=== PATIENT | female | born 1930 | race Caucasian/White ===

== ENCOUNTER 2017-11-19 08:50 | Inpatient (IN) | payer MEDICARE ==
--- NOTE | 2017-11-19 12:19 | RAD ---
LEFT KNEE RADIOGRAPHS FOUR VIEWS: Date: 11-19-17 Provided Clinical History: Left knee pain status post injury. FINDINGS: Post-operative change of left total knee arthroplasty are demonstrated. There is a transversely orien kelle periprostatic fracture of the distal femoral metaphyseal region. There is posterior displacement of the distal fracture fragment with respect to the proximal fracture fragment as well as fracture fr agment overriding. Alignment appears otherwise anatomic. There is no evidence for hardware loosening or migration. IMPRESSION: 1. Displaced distal femoral metaphyseal periprosthetic fracture. POS: [facility]
[2017-11-19 12:36] LABS: #Lymphocytes 0.6 thou/uL (1.20-3.40); #Monocytes 0.5 thou/uL (0.11-0.59); %Basophils 0.1 % (0.0-1.0); %Eosinophils 0.1 % (0.0-10.0); %Monocytes 5.7 % (0.0-10.0); %Neutrophils 87.1 % (42.0-75.0); Hemoglobin 12.5 g/dL (12.0-16.0); Mean Corpuscular HGB CONC 32.7 g/dL (32.0-36.0); Mean Corpuscular Hemoglobin 30.7 pg (27.0-31.0); Mean Platelet Volume 10.1 fL (7.4-10.4); Platelet Count 170 thou/uL (130-400); RBC Distribution Width 12.8 % (11.5-14.5); Red Blood Cell (RBC) Count 4.07 mill/uL (4.20-5.40); White Blood Cell (WBC) Count 9.1 thou/uL (4.8-10.8)
[2017-11-19 12:46] LABS: INR-International Normal Ratio 1.1; PTT 26.5 SEC (22.9-36.1); Prothrombin Time 14.3 SEC (12.0-14.7)
[2017-11-19] MEDS ORDERED: HYDROcodone/Acetaminophen 10/325 mg Tablet PO PRN ×2 (12:48)
[2017-11-19] MEDS ORDERED: Dextrose 50% Abboject 50 ML SYRINGE SLOW IVP PRN (12:48)
[2017-11-19] MEDS ORDERED: Dextrose 5% in Water 1,000 ML IV PRN (12:48)
[2017-11-19] MEDS ORDERED: Acetaminophen 500 MG TAB PO SCH (13:00)
[2017-11-19 13:07] LABS: ALT (SGPT) 14 U/L (8-55); AST (SGOT) 13 U/L (5-34); Albumin 3.3 g/dL (3.4-4.8); Alkaline Phosphatase 59 U/L (40-150); Anion Gap 13 mmol/L (10-20); BUN (Urea Nitrogen) 17 mg/dL (9.8-20.1); Bilirubin, Total 0.5 mg/dL (0.2-1.2); Calc. Creatinine Clearance 0 mL/min (70-130); Calcium 9.2 mg/dL (7.8-10.44); Carbon Dioxide 26 mmol/L (23-31); Chloride 97 mmol/L (98-107); Estimated GFR-MDRD 66; Globulin 3.5 g/dL (2.4-3.5); Glucose 193 mg/dL (83-110); Potassium 4.3 mmol/L (3.5-5.1); Protein, Total 6.8 g/dL (6.0-8.3); Sodium 132 mmol/L (136-145)
--- NOTE | 2017-11-19 13:10 | CON ---
DATE OF CONSULTATION: 11/19/2017 CHIEF COMPLAINT: Left leg pain. HISTORY OF PRESENT ILLNESS: Ms. Corado is an 86-year-old female who fell at home today. She sharron ded on her left side. She lost her balance. She did not lose consciousness or strike her head. She was unable to ambulate. She had immediate pain in the left femur. She has a history of total knee arthroplasty many years ago. She has had no problems recently with her legs. She has been of good h ealth over the last several years. She denies any active medical problems. PAST MEDICAL HISTORY: She denies medical problems. PAST SURGICAL HISTORY: Previous bilateral total knee arthroplasty approximately 30-40 years ago she reports. FAMILY MEDICAL HISTORY: Noncontributory. SOCIAL HISTORY: The patient denies tobacco, alcohol, or drug use. REVIEW OF SYSTEMS: Positive for left leg pain, otherwise negative. IMAGES: X-rays of the left knee demonstrate total knee arthroplasty which is well fixed to the bone. She has a periprosthetic distal femur fracture, approximately 3 cm proximal to the implant. PHYSICAL EXAMINATION: VITAL SIGNS: Stable. Patient is alert, sitting upright in no apparent distress, normotensive, 98% o n room air. GENERAL: She is talkative. HEENT: Normocephalic, atraumatic. RESPIRATORY: Breathing comfortably. ABDOMEN: Soft, nontender, and nondistended. MUSCULOSKELETAL: Left leg has a well healed surgical scar anteriorly. There is effusion and swellin g of the knee. She has pain with motion. She is neurovascularly intact in the foot and ankle. She has palpable dorsalis pedis pulse. IMPRESSION: Left periprosthetic distal femur fracture. PLAN: At this point, the patient will need operative treatment. We will admit her to the [facility] for pain control and preoperative medical optimization. She is of good health. Our plan will b e for open reduction and internal fixation of the distal femur using a plate. I will add her on for the surgical schedule tomorrow morning. She should be n.p.o. at midnight. Questions have been answe red, including with her family. She will have appropriate antibiotic prophylaxis and DVT prophylaxis .
--- NOTE | 2017-11-19 14:52 | HP ---
DATE OF ADMISSION: 11/19/2017 REQUESTING PHYSICIAN: Boom Lincoln MD ADMITTING PHYSICIAN: Berto Cole DO CONSULTING PHYSICIAN: Black Villarreal MD CHIEF COMPLAINT: Evaluation of left knee status post fall. HISTORY OF PRESENT ILLNESS: The patient is an 86-year-old female with history of Alzheimer's disease and previous history of opiate addiction who apparently tried to sit on her dog last night. The dog moved and the patient fell sideways onto her left knee. She denies head injury or loss of conscious ness. The daughter was apparently next to her when she fell and was able to catch her somewhat. She was brought to the [place] ED where she was evaluated and diagnosed with a left distal femur shahzad prosthetic fracture. Dr. Black Villarreal was consulted and agreed to take her to the OR today. The patient denies any pain currently. She is also unable to recall any events of the fall and is un sure why she was in the hospital. Details of this history were obtained from the daughter who is pre sent at bedside. CURRENT MEDICATIONS: Include Zoloft and melatonin. PAST MEDICAL HISTORY: Significant for Alzheimer's dementia, possibly osteoporosis or osteopenia, solomon rine cancer or other reproductive cancer (the patient and her daughter were unable to recall the exac t type of cancer). The patient also has a history of opiate addiction. PAST SURGICAL HISTORY: Obtained from daughter. The patient has had a hysterectomy many years ago. The patient has had bilateral knee replacements approximately 40 years ago. The patient also has a r emote history of back surgery. SOCIAL HISTORY: The patient does not drink alcohol currently. She does not smoke. She does not do drugs. She lives with her daughter in a [address] dwelling. ALLERGIES: The patient reports no known drug allergies. FAMILY HISTORY: Unclear. The patient was adopted. REVIEW OF SYSTEMS: Review of systems is negative except as mentioned in the HPI. Last meal, the pat ient reports having a peanut butter cracker several hours ago. Other than that, she has not had any food since yesterday. PHYSICAL EXAMINATION: VITAL SIGNS: BP 101/76, pulse 85, respirations 16, temperature 97.3, O2 sat 97% on room air. GENERAL APPEARANCE: The patient is an elderly adult female who does not appear to be in any acute di stress. HEENT: Her head is normocephalic and atraumatic. Eyes, pupils are round and reactive to light and a ccommodation, but unequal in size. Right equals 3 mm, left equals 2 mm. Ears, the patient's externa l auditory canals are atraumatic. There is no blood or discharge. Nose, her nares are patent and wi thout discharge. MOUTH: The patient has upper dentures. She has no other oropharyngeal abnormalities. NECK: The patient's trachea is midline. Her neck is supple and there is no tenderness. RESPIRATORY: Her lungs are clear to auscultation bilaterally with normal effort. CARDIOVASCULAR: She has a regular rate and rhythm. Normal S1 and S2. No murmurs, gallops or rubs. ABDOMEN: Her abdomen is soft, nontender and nondistended. Her bowel sounds are normal. EXTREMITIES: She is neurovascularly intact x4. She has well-healed surgical scars running verticall y along both knees. Her left knee is grossly effused, but nonerythematous. SKIN: Intact. NEUROLOGIC: The patient has a Dow coma scale of 15 today. She is alert and oriented to name and place. LABORATORY DATA: WBC 9.1, hemoglobin 12.5, hematocrit 38.2, platelets 170,000. Coags: PT is 14.3, INR 1.1, PTT 26.5. Chemistry: Sodium 132, potassium 4.3, chloride 97, bicarbonate 26, BUN 17, creat inine 0.82, estimated GFR 66, glucose 193. Other lab findings, albumin 3.3, albumin globulin ratio 0 .9. RADIOGRAPHIC FINDINGS: Knee x-ray, impression: Displaced distal femoral metaphyseal periprosthetic fracture. ASSESSMENT AND PLAN: 1. Status post ground level fall. 2. Distal left periprosthetic femur fracture, closed. 3. Acute traumatic pain. 4. History of Alzheimer's dementia. PLAN: 1. The plan will be for the patient to go to the OR today for surgical fixation of her left distal f emur. 2. Postop PT and OT consult. 3. We will initiate pain control and other supportive care measures, gastritis prophylaxis and pulmo nary toileting. This patient was seen and examined along with Dr. Berto Cole who agrees with this assessment and benitez colon
[2017-11-19 14:54] VITALS: BMI 19.8
[2017-11-19] MEDS: Sodium Chloride 0.9% 1,000 ML IV SCH ×2 (14:56→22:21)
[2017-11-19] MEDS: Acetaminophen 500 MG TAB PO SCH (22:15)
[2017-11-20] MEDS ORDERED: CEFAZOLIN/Water 2 GM/20 ML SYRINGE SLOW IVP SCH (00:01)
[2017-11-20 04:32] LABS: Anion Gap 8 mmol/L (10-20); BUN (Urea Nitrogen) 18 mg/dL (9.8-20.1); Calc. Creatinine Clearance 43 mL/min (70-130); Calcium 8.1 mg/dL (7.8-10.44); Carbon Dioxide 27 mmol/L (23-31); Chloride 105 mmol/L (98-107); Estimated GFR-MDRD 69; Glucose 91 mg/dL (83-110); Potassium 3.9 mmol/L (3.5-5.1); Sodium 136 mmol/L (136-145)
[2017-11-20 04:48] LABS: Eosinophils 1 % (0-10); Hemoglobin 9.8 g/dL (12.0-16.0); Lymphocytes 28 % (21-51); MDiff Complete? YES; Mean Corpuscular HGB CONC 32.6 g/dL (32.0-36.0); Mean Corpuscular Hemoglobin 30.8 pg (27.0-31.0); Mean Corpuscular Volume 94.4 fl (81.0-99.0); Mean Platelet Volume 10.1 fL (7.4-10.4); Metamyelocyte 3 % (0-0); Monocytes 7 % (0-10); Neutrophil 61 % (42-75); PLT Morphology Comment Appears Adequate; Platelet Count 139 thou/uL (130-400); RBC Distribution Width 12.8 % (11.5-14.5); White Blood Cell (WBC) Count 7.8 thou/uL (4.8-10.8)
[2017-11-20] MEDS: Acetaminophen 500 MG TAB PO SCH (04:52)
[2017-11-20] MEDS ORDERED: CEFAZOLIN/Water 2 GM/20 ML SYRINGE ONE (06:14)
[2017-11-20] MEDS ORDERED: Fentanyl 100 MCG/2 ML VIAL ONE ×3 (07:17→09:53)
[2017-11-20] MEDS ORDERED: Ondansetron HCl/PF 4 MG/2 ML Vial IVP PRN (09:16)
--- NOTE | 2017-11-20 10:42 | OP ---
DATE OF OPERATION: 11/20/2017 OPERATION: Open reduction and internal fixation of left periprosthetic distal femur fracture. PREOPERATIVE DIAGNOSIS: Left periprosthetic distal femur fracture. POSTOPERATIVE DIAGNOSIS: Left periprosthetic distal femur fracture. COMPLICATIONS: None. ESTIMATED BLOOD LOSS: 200 mL. SURGEON: Black Villarreal M.D. KEY WORKER: Kellen Farley PA-C IMPLANTS: Synthes 16-hole distal femoral variable angle locking plate with multiple locking and nonl ocking screws was used. INDICATIONS: Ms. Corado is an 86-year-old female who fell sustaining a fracture of the left dist al femur just proximal to a total knee arthroplasty. She was indicated for open reduction and campus interviews intern al fixation to restore anatomic alignment and promote healing. Risks have been reviewed in detail. She has elected to proceed with the operation. DESCRIPTION OF PROCEDURE: Ms. Corado was identified in the preoperative holding area. Her corre ct extremity was marked. She was carried to the operating room. She was positioned supine. General anesthesia was induced. A dose of intravenous antibiotics was administered. We began the procedure with a lateral approach to the distal femur. We dissected down through the matos bcutaneous tissues to the fascia which was incised. We exposed the distal femur and fracture. At th is point, we reduced the fracture using traction and a femoral elevator for manipulation of the fragm ents. Once we had an anatomic reduction, we applied a 16-hole Synthes plate to the lateral cortex of the femur. This was fixed to the bone proximally with a nonlocking screw followed by a distal locki ng fixation under x-ray guidance. We then went back and filled the remaining proximal screw holes wi th locking screws. Once we had rigid construct, we took final x-ray images. We thoroughly irrigated with lavage. We then closed with 2-0 Vicryl suture and tl for the skin. A sterile dressing an d a knee immobilizer was placed. The patient was taken to the recovery room in good condition.
--- NOTE | 2017-11-20 12:11 | RAD ---
INTRAOPERATIVE FLUOROSCOPIC VIEWS OF LEFT FEMUR SIX VIEWS PROVIDED: CLINICAL HISTORY: ORIF left distal femoral fracture. FINDINGS: There is side plate and screw fixation of the femur transfixing a distal, transversely oriented metad iaphyseal femoral fracture with mild displacement. Detail is limited by fluoroscopic technique intra operatively. IMPRESSION: Fixated distal femoral fracture. POS: [facility]
[2017-11-20] MEDS: Acetaminophen 1,000 MG in Premix Bag 1 BAG IVPB SCH ×2 (12:59→17:49)
[2017-11-20] MEDS: Sodium Chloride 0.9% 1,000 ML IV SCH (13:01)
--- NOTE | 2017-11-20 13:35 | EKG ---
Test Reason : PREOP Blood Pressure : / mmHG Vent. Rate : 079 BPM Atrial Rate : 227 BPM P-R Int : 000 ms QRS Dur : 122 ms QT Int : 408 ms P-R-T Axes : 000 011 009 degrees QTc Int : 467 ms Atrial fibrillation Right bundle branch block Abnormal ECG Confirmed by JULES KYLE ([id number]) on 11/20/2017 1:34:57 PM Referred By: JARED Confirmed By:JULES KYLE
[2017-11-20] MEDS ORDERED: Bupivacaine PF 0.5% 30 ML VIAL ONE (13:44)
[2017-11-20] MEDS ORDERED: Bupivacaine HCl 0.5%/Epinephrine 1:200,000/PF 30 ml Vial ONE (13:44)
[2017-11-20 14:01] LABS: Anion Gap 10 mmol/L (10-20); BUN (Urea Nitrogen) 16 mg/dL (9.8-20.1); Calc. Creatinine Clearance 42 mL/min (70-130); Carbon Dioxide 23 mmol/L (23-31); Chloride 105 mmol/L (98-107); Estimated GFR-MDRD 66; Glucose 147 mg/dL (83-110); Magnesium 1.8 mg/dL (1.6-2.6); Phosphorus 3.1 mg/dL (2.3-4.7); Potassium 4.9 mmol/L (3.5-5.1); Sodium 133 mmol/L (136-145)
--- NOTE | 2017-11-20 14:07 | RAD ---
FRONTAL VIEW CHEST: COMPARISON: 10/22/17. FINDINGS: There is no lobar consolidation, effusion, or discrete pneumothorax. Cardiac silhouette is prominent as is pulmonary vasculature. There is mild suprahilar patchy opacity bilaterally, more notable on t he left. Right shoulder prosthesis is present. There is scattered osseous degenerative change. Met allic clips are seen in the left upper abdomen. IMPRESSION: 1. No lobar consolidation. 2. Prominence of cardiac silhouette and pulmonary vasculature. 3. Mild prominence of the suprahilar structures bilaterally could be on the basis of mild vascular c ongestion. POS: [facility]
[2017-11-20 14:08] LABS: CKMB 1.3 ng/mL (0-6.6); Troponin I 0.013 ng/mL (< 0.028)
[2017-11-20] MEDS ORDERED: Ketorolac Tromethamine 30 MG/ML VIAL ONE (14:31)
[2017-11-20] MEDS ORDERED: PHENYLEPHRINE-NS 100 MCG/ML 10 ML SYRINGE ONE (14:31)
[2017-11-20] MEDS ORDERED: PROPOFOL 200 MG/20 ML VIAL ONE (14:31)
[2017-11-20] MEDS ORDERED: Lidocaine 1% PF 5 ML VIAL ONE (14:31)
[2017-11-20] MEDS ORDERED: Dexamethasone 20 MG/5 ML VIAL ONE (14:31)
[2017-11-20] MEDS: CEFAZOLIN/Water 2 GM/20 ML SYRINGE SLOW IVP SCH ×2 (15:46→23:52)
[2017-11-20] MEDS: Hydrocortisone Sod Succ/PF 100 mg/2 ml Vial IVP SCH ×2 (15:46→17:47)
[2017-11-20] MEDS: Sodium Chloride 0.9% 250 ML IV SCH ×3 (16:18→16:20)
--- NOTE | 2017-11-20 17:48 | PRG ---
DATE OF SERVICE: 11/20/2017 ATTENDING PHYSICIAN: Dr. Berto Cole. SUBJECTIVE: The patient is an 86-year-old female with a history of severe dementia who suffered a di stal left periprosthetic femur fracture yesterday after attempting to sit on her dog and then falling off. Then she was brought to the ED by her daughter. Dr. Black Villarreal was consulted and i t was agreed that they would go to the OR this morning. The patient was discovered to be in atrial fibrillation without RVR by the anesthesiologist ramo wild and she remained in atrial fibrillation without RVR throughout surgery. Prior to this, Trauma teeteecristina was unaware of any history of atrial fibrillation. She had been normal on exam yesterday bam yuan her history and physical. Records from her primary physician were obtained, which show a history o f atrial fibrillation going back at least as far as 2014. The patient was transferred from the surgi agnieszka floor to telemetry. An echo was ordered as well as cardiac enzymes, chest x-ray, BNP and electro lyte panel. The patient is now stable on telemetry. She reports adequate pain control and vocalizes no complaint s. OBJECTIVE: VITAL SIGNS: Blood pressure 102/62, pulse 79, temperature 97.8, respirations 16, O2 sat 98% on room air. GENERAL: The patient is an elderly adult female, who is in no acute distress. HEENT: Normocephalic and atraumatic. RESPIRATORY: Lungs are clear to auscultation bilaterally with normal effort. CARDIOVASCULAR: She has an irregularly irregular rhythm. No murmurs, gallops or rubs are appreciate d. ABDOMEN: Her abdomen is soft, nontender and nondistended. Her bowel sounds are normal. EXTREMITIES: She is neurovascularly intact x4. Her surgical dressing is clean and dry. NEUROLOGIC: The patient's GCS is 15 today. She is alert to person, but nothing else. She has no fo agnieszka deficits. LABORATORY DATA: WBC 7.8, hemoglobin 9.8, hematocrit 30.2, platelets 139. Chemistry: Sodium 133, p otassium 4.9, chloride 105, bicarbonate 23, BUN 16, creatinine 0.82. Estimated GFR 66, glucose 147. BNP 204.6. Cortisol 11.5. CK-MB 1.3, troponin 0.013. RADIOGRAPHIC FINDINGS: Chest x-ray, impression: 1. No lobar consolidation. 2. Prominence of cardiac silhouette and pulmonary vasculature. 3. Mild prominence of the suprahilar structures bilaterally could be on the basis of mild vascular c ongestion. ASSESSMENT: 1. Status post ground level fall. 2. Distal left periprosthetic femur fracture, status post open reduction internal fixation. 3. History of Alzheimer's dementia. 4. Acute traumatic pain. 5. Atrial fibrillation, likely paroxysmal. PLAN: 1. Continue pain control, pulmonary toileting and other supportive care measures as needed. 2. PT and OT will evaluate postop. Unclear if the patient will be a good candidate for rehabilitati on given her mental status. We will consider jail as alternative to rehab with rehab scre en fails. 3. The patient's BNP was elevated today, which may be contributing to or causing her atrial fibrilla tion, although this is a longstanding problem. The chest x-ray finding of prominent pulmonary vascul ature supports the picture of volume overload/heart failure; however, she is satting well currently, so we will hold off on diuresing for now. We will, however, discontinue her fluids and continue to m onitor her on telemetry. Given that her atrial fibrillation, probably goes back for sometime it woul d be inappropriate to cardiovert her especially given that she is asymptomatic at this point. 4. The patient has been borderline hypotensive. She was given 100 mg of hydrocortisone and has been started on 25 mg q.6 hours. This patient was seen and examined along with Dr. Berto Cole on rounds this morning and no informa tion was relayed to him by phone regarding her atrial fibrillation. He agrees with this assessment a nd plan.
[2017-11-21] MEDS: Hydrocortisone Sod Succ/PF 100 mg/2 ml Vial IVP SCH ×4 (00:15→17:50)
[2017-11-21] MEDS: Acetaminophen 1,000 MG in Premix Bag 1 BAG IVPB SCH ×2 (01:45→07:07)
[2017-11-21] MEDS ORDERED: Sodium Chloride 0.9% 250 ML 250 ML IVPB PRN (04:00)
[2017-11-21] MEDS ORDERED: Sodium Chloride 0.9% 500 ML IVPB PRN (04:30)
[2017-11-21] MEDS: Enoxaparin Sodium 40 MG/0.4 ML SYRINGE SC SCH (09:46)
[2017-11-21] MEDS: Acetaminophen 500 MG TAB PO SCH ×2 (12:35→17:50)
--- NOTE | 2017-11-21 12:59 | PRG ---
DATE OF EXAMINATION: 11/21/2017 SUBJECTIVE: Ms. Corado is awake and alert today. She is postoperative day #1 status post open r eduction and internal fixation left periprosthetic femur fracture. The patient reports adequate pain control. She has remained in rate control atrial fibrillation overnight and denies any chest pain, dyspnea or syncope. PHYSICAL EXAMINATION: VITAL SIGNS: Currently includes blood pressure 99/57, pulse 64, respiratory rate is 20, temperature is 98.1 degrees Fahrenheit, and oxygen saturation is 99% on room air. She required a bolus of fluids last night to achieve systolic blood pressure in excess of 90. Urinary output currently remains jose quate. HEART: Reveals irregular rate and rhythm. LUNGS: Clear to auscultation bilaterally. Breathing is regular and unlabored. ABDOMEN: Soft, nontender and nondistended. EXTREMITIES: Reveals 2+ radial and pedal pulses bilaterally. No ankle edema is present. NEUROLOGIC: Examination reveals no focal deficits present. IMPRESSION: 1. Postoperative day #1, status post open reduction and internal fixation of left prosthetic femur f racture. 2. Stable chronic rate controlled atrial fibrillation. 3. Acute adrenal insufficiency, currently on mineralocorticoid hormone replacement therapy. 4. Chronic dilated cardiomyopathy as established with transthoracic echocardiography obtained on thi s admission. Ejection fraction; however, is normal at 50%-55%. PLAN: 1. We will ask Cardiology to evaluate the patient for this history of dilated cardiomyopathy as we a re unsure as to what her baseline function is. 2. The patient will be transferred to a general surgical floor where we will continue with physical and occupational therapy and increase activity accordingly. 3. Above findings and plan discussed with the patient who indicates understanding of the information given. I answered her questions.
[2017-11-22] MEDS: Acetaminophen 500 MG TAB PO SCH ×4 (01:30→17:29)
[2017-11-22] MEDS: Hydrocortisone Sod Succ/PF 100 mg/2 ml Vial IVP SCH ×4 (01:31→17:29)
--- NOTE | 2017-11-22 07:00 | PRG ---
DATE OF SERVICE: 11/21/2017 SUBJECTIVE: The patient is doing well. She is sleeping in bed, no acute complaints, as per the daug hter, but otherwise, the patient did try to get out of bed unassisted twice, but otherwise has been c ompliant with care. OBJECTIVE: Vital signs have been reviewed. Otherwise, have been stable. Physical exam was unchange d from progress note. ASSESSMENT AND PLAN: Continue care as noted in the daily progress note and continue to monitor. Car diology consult was pending. Discharge disposition was pending.
[2017-11-22] MEDS: Enoxaparin Sodium 40 MG/0.4 ML SYRINGE SC SCH (08:57)
[2017-11-22 09:15] LABS: #Lymphocytes 1.3 thou/uL (1.20-3.40); #Neutrophils 10.7 thou/uL (1.40-6.50); %Eosinophils 0.2 % (0.0-10.0); %Lymphocytes 10.3 % (21.0-51.0); %Monocytes 7.7 % (0.0-10.0); %Neutrophils 81.8 % (42.0-75.0); Hemoglobin 9.9 g/dL (12.0-16.0); Mean Corpuscular HGB CONC 32.1 g/dL (32.0-36.0); Mean Corpuscular Hemoglobin 30.5 pg (27.0-31.0); Mean Corpuscular Volume 94.9 fl (81.0-99.0); Platelet Count 167 thou/uL (130-400); RBC Distribution Width 13.2 % (11.5-14.5); Red Blood Cell (RBC) Count 3.23 mill/uL (4.20-5.40); White Blood Cell (WBC) Count 13.1 thou/uL (4.8-10.8)
[2017-11-22 09:40] LABS: ALT (SGPT) 8 U/L (8-55); AST (SGOT) 17 U/L (5-34); Albumin 2.9 g/dL (3.4-4.8); Alkaline Phosphatase 42 U/L (40-150); Anion Gap 10 mmol/L (10-20); BUN (Urea Nitrogen) 23 mg/dL (9.8-20.1); Bilirubin, Total 0.3 mg/dL (0.2-1.2); Calc. Creatinine Clearance 45 mL/min (70-130); Calcium 8.6 mg/dL (7.8-10.44); Carbon Dioxide 24 mmol/L (23-31); Chloride 105 mmol/L (98-107); Estimated GFR-MDRD 72; Globulin 2.9 g/dL (2.4-3.5); Glucose 147 mg/dL (83-110); Potassium 4.5 mmol/L (3.5-5.1); Protein, Total 5.8 g/dL (6.0-8.3); Sodium 134 mmol/L (136-145)
--- NOTE | 2017-11-22 13:03 | PRG ---
DATE OF SERVICE: 11/22/2017 SUBJECTIVE: Ms. Corado is an 86-year-old woman who is postoperative day #2 today status post ope n reduction and internal fixation of left periprosthetic femur fracture. She reports adequate pain c ontrol. She has remained hemodynamically stable and afebrile through this hospitalization. OBJECTIVE: VITAL SIGNS: Today includes blood pressure 121/75, pulse is 81 and irregular, respiratory rate is 18 , maximum temperature in the last 24 hours is 98 degrees Fahrenheit, oxygen saturation 98% on room ai r. HEART: Reveals regular rate and rhythm. LUNGS: Clear to auscultation bilaterally. NEUROLOGIC: Examination reveals no focal deficits present. LABORATORY DATA: Pertinent laboratory findings includes CBC with 13,100 white blood cells, hemoglobi n 9.9, hematocrit is 30.7, platelet count is 167,000. Metabolic profile today; sodium 134, potassium is 4.5, chloride is 105, bicarbonate is 24, BUN 23, creatinine 0.76, and glucose 147. IMPRESSION: 1. Postoperative day #2, status post open reduction and internal fixation of left periprosthetic fem ur fracture. 2. Chronic atrial fibrillation, rate controlled. The patient is otherwise hemodynamically stable. PLAN: Continue to increase activity per physical and occupational therapy. We await Cardiology eval uation of this patient's cardiomyopathy as established by the recent transthoracic echocardiography. The patient has been evaluated by [facility] for possible inpatient rehabilitation.
[2017-11-23] MEDS: Hydrocortisone Sod Succ/PF 100 mg/2 ml Vial IVP SCH ×3 (00:28→15:23)
[2017-11-23] MEDS: Acetaminophen 500 MG TAB PO SCH ×3 (00:28→15:20)
[2017-11-23] MEDS ORDERED: Senokot 8.6 MG TAB PO PRN (08:09)
[2017-11-23] MEDS ORDERED: Milk Of Magnesia 30 ML UDCUP PO PRN (08:14)
[2017-11-23] MEDS ORDERED: Bisacodyl 10 MG SUPP PR PRN (08:14)
[2017-11-23] MEDS ORDERED: Bisacodyl 10 MG SUPP PR SCH (09:00)
[2017-11-23] MEDS: Enoxaparin Sodium 40 MG/0.4 ML SYRINGE SC SCH (10:01)
--- NOTE | 2017-11-23 12:13 | PRG ---
DATE OF SERVICE: 11/23/2017 SUBJECTIVE: Ms. Corado is an 86-year-old woman with senile dementia of Alzheimer's type. Patien t is 3 days status post open reduction internal fixation of left periprosthetic distal femur fracture . She is pleasantly confused, but interactive. She tolerated diet well, having adequate urinary out put. Last bowel movement was 2 days ago. She otherwise has remained hemodynamically stable and afeb rile. OBJECTIVE: VITAL SIGNS: Current vital signs include blood pressure 157/76, pulse 84, respiratory rate 24, tempe rature 97.7 degrees Fahrenheit, oxygen saturation 96% on room air. HEENT: Reveals normocephalic and atraumatic. HEART: Reveals irregular rate and irregular rhythm. LUNGS: Clear to auscultation bilaterally. Breathing regular and unlabored. ABDOMEN: Soft, nontender and nondistended. Bowel sounds in all four quadrants appear normoactive. EXTREMITIES: Reveals 2+ radial and pedal pulses bilaterally. No ankle edema is present. NEUROLOGIC: Reveals no focal deficits present. IMPRESSION: 1. Postoperative day #3, status post open reduction internal fixation left femur fracture. 2. History of senile dementia of Alzheimer's type, otherwise hemodynamically stable. PLAN: Continue activity per physical and occupational therapy. Patient has been evaluated and is he modynamically stable for transfer to inpatient rehabilitation once bed becomes available. Above find ings and plan discussed with the patient's daughter at bedside. She indicates understanding of the i nformation given. I have answered her questions.
[2017-11-23 16:20] VITALS: BP 115/74; TEMP 97.8
--- NOTE | 2017-11-24 03:12 | DIS ---
DATE OF ADMISSION: 11/19/2017 DATE OF DISCHARGE: 11/23/2017 ADMITTING PHYSICIAN: Dr. Berto Cole. DISCHARGING PHYSICIAN: Dr. Berto Cole. CONSULTING PHYSICIAN: Dr. Black Villarreal. REASON FOR HOSPITALIZATION: Ground level fall with left knee pain. HOSPITAL DIAGNOSIS: Left distal displaced femoral periprosthetic fracture. PROCEDURE PERFORMED: ORIF, left periprosthetic distal femur fracture. DATE OF PROCEDURE: 11/20/2017. SURGEON: Dr. Black Villarreal. PATIENT'S DISCHARGE CONDITION: Good. DISPOSITION: Discharged to rehabilitation. DISCHARGE MEDICATIONS: The patient may resume all home medications. ACTIVITY: Weightbearing as tolerated. THERAPY: Resume therapy at rehabilitation. DIET: Regular. FOLLOWUP: Plan for medical followup. Follow up with Dr. Villarreal in 2 weeks. Referral for outpatient Cardiology. BRIEF HISTORY OF HOSPITALIZATION: Ms. Corado is an 86-year-old female who attempted to sit down on her dog and when the dog moved out of the way, she fell over onto her left knee. She was transported to [facility] where workup identified a left periprosthetic femur fracture. She was admitted to the hospital by Trauma services. Dr. Villarreal was consulted. The patient was taken to the OR by Dr. Villarreal for repair of fracture. Postoperatively, she was noted to be in atrial fibrillation. She was transferred to the telemetry unit for further monitoring. She did not have any episodes of rapid ventricular response. She was never hemodynamically unstable. She was able to be transferred back to the surgical floor where she continued working with physical and occupational therapy. She was evaluated by rehab for placement in [facility]. Outpatient referral was made to Cardiology for findings on echocardiogram. She was seen on 11/24/2017 on morning rounds by Dr. Cole and cleared for discharge over to rehab facility. She is to follow up as listed above. The patient was seen and examined with Dr. Cole who agrees with the assessment and plan. MILTON
== END 2017-11-23 16:59 | DRG 481 ==
LOC: ERS 08:50 → SURG A 12:05 → 2NO 11-20 16:19 → SJJU 11-21 14:16
PROVIDERS: ADMIT Surgery; ATTEND Surgery
PROC: 0QSC04Z Reposition Left Lower Femur with Internal Fixation Device, Open Approach (ICD-10-PCS; principal; 2017-11-20)
PROC: 3E0T3BZ Introduction of Anesthetic Agent into Peripheral Nerves and Plexi, Percutaneous Approach (ICD-10-PCS; 2017-11-20)
DX: S72.402A Unspecified fracture of lower end of left femur, initial encounter for closed fracture (principal); M97.12XA Periprosthetic fracture around internal prosthetic left knee joint, initial encounter; E27.49 Other adrenocortical insufficiency; I42.0 Dilated cardiomyopathy; F11.20 Opioid dependence, uncomplicated; I48.0 Paroxysmal atrial fibrillation; I48.2 Chronic atrial fibrillation; G30.9 Alzheimer's disease, unspecified; F02.80 Dementia in other diseases classified elsewhere, unspecified severity, without behavioral disturbance, psychotic disturbance, mood disturbance, and anxiety; W17.89XA Other fall from one level to another, initial encounter; Z96.652 Presence of left artificial knee joint
CPT/HCPCS: 36415; 71045; 76001; 80048; 80053; 82533; 82553; 83735; 83880; 84100; 84484; 85025; 85610; 85730; 86850; 86900; 86901; 93005; 93010; 93306; 96374; C1713; C1769; G8978-GP-CM; G8979-GP-CK; J0131; J0670; J1100; J1650; J1720; J1885; J2001; J2270; J2704; J3010; P9045; S0020

== ENCOUNTER 2018-06-18 15:01 | Outpatient (CLI) | payer MEDICARE ==
--- NOTE | 2018-06-18 16:02 | RAD ---
LEFT FEMUR: 06/18/18 HISTORY: Closed fracture shaft of left femur. AP and lateral views were obtained for a total of four projections. Comparison is made to knee films of 11/19/17. That exam revealed fracture of the distal femur at the p rosthesis. FINDINGS/IMPRESSION: Lateral plate and screws have been placed transfixing the femur. The knee prosthesis components remai n in alignment. The fracture line of the distal femur is again seen with sclerosis along the fracture margins. There is evidence of some callus formation along the posterior margin. Degenerative changes at the hip with osteopenia. POS: [facility]
== END 2018-06-18 15:02 | disposition home or self-care (01) ==
LOC: SCSRAD 15:01
PROVIDERS: ATTEND Physician Assistant Surgical
DX: S72.302A Unspecified fracture of shaft of left femur, initial encounter for closed fracture (principal); M16.12 Unilateral primary osteoarthritis, left hip; M85.852 Other specified disorders of bone density and structure, left thigh